=== PATIENT | female | born 1995 | race African-American/Black ===

== ENCOUNTER 2017-05-14 19:06 | Emergency (ER) | payer OTHER ==
[~2017-05-14] VITALS: Ht 154.9 cm; Wt 44.0 kg
[2017-05-14] MEDS ORDERED: PROAIR HFA8.5 GM INH (19:38)
[2017-05-14] MEDS ORDERED: COLACE100 MG PO (21:37)
[2017-05-14 22:08] VITALS: BP 126/84
== END 2017-05-14 22:09 | disposition home or self-care (01) ==
LOC: ER 19:06
DX: K59.00 Constipation, unspecified (principal)